=== PATIENT | female | born 1990 | race Caucasian/White ===

== ENCOUNTER 2020-11-09 16:54 | Emergency (ER) | payer OTHER ==
[2020-11-09] MEDS ORDERED: HYDROCODON-ACE1 EAC2 PO (18:29)
== END 2020-11-09 18:56 | disposition home or self-care (01) ==
LOC: FER 16:54
DX: S43.004A Unspecified dislocation of right shoulder joint, initial encounter (principal); X58.XXXA Exposure to other specified factors, initial encounter; Y92.009 Unspecified place in unspecified non-institutional (private) residence as the place of occurrence of the external cause
CPT/HCPCS: 73020; 73030; 96374; 96375; 99152; J1170; J1885; J2405; J2704